=== PATIENT | male | born 1980 | race Caucasian/White ===

== ENCOUNTER → 2018-11-13 12:12 | Outpatient (CLI) | payer MEDICAID, SELFPAY ==
[2018-11-13 13:26] LABS: Bilirubin, Direct 0.21 mg/dL (0.00-0.30)
== END ==
PROVIDERS: Family Provider Nurse Practitioner; PCP Nurse Practitioner; Referring Provider Nurse Practitioner Pediatrics; Visit Provider Nurse Practitioner Pediatrics
DX: P59.9 Neonatal jaundice, unspecified (principal)
CPT/HCPCS: 82247; 82248

== ENCOUNTER 2019-04-09 10:30 | Emergency (ER) | payer MEDICAID, SELFPAY ==
[2019-04-09 10:33] VITALS: PULSE 156; RESP 34; TEMP 36.6; O2SAT 100
--- NOTE | 2019-04-09 10:35 | ED.DCSUM_ITS ---
- ER Visit Summary Date of Service: 04/09/19 Chief Complaint: Cough and congestion History of Present Illness: The patient is a 4m 28d M who presents with cough and congestion that has been getting worse over the past 2 weeks. Mother states the patient has had some nasal congestion. Mother states the patient was recently treated for otitis media with antibiotics. Mother states patient has not had improvement after this. Mother admits to some decreased oral intake. Mother states patient has been acting and playing normally. Mother states patient has been wetting diapers normally. Mother states patient has been a little bit more fussy. Physical Examination: Vital signs are stable. Patient is afebrile here. Patient is in no acute distress. Fontanelles are soft not bulging. Tympanic membranes are clear bilaterally. Oral mucosa is pink and moist. There is a small erythematous lesion in the lower lip. There is no ulceration noted. Neck is supple. Trachea is midline. No JVD or lymphadenopathy. Heart was regular rate and rhythm. Lungs are clear and equal bilateral. Abdomen is soft nontender. Cranial nerves II through XII are intact. There are no focal motor or sensory deficits noted. Emergency Department Course and Treatment: Mother was advised that this is most likely a viral upper respiratory infection. Mother was instructed to use saline nasal spray as needed for nasal congestion and rhinorrhea. Mother was instructed to follow-up with patient's parking lot signaler in 5 to 7 days. Mother was instructed to use Tylenol or Motrin for any fevers. Mother was instructed to return if worse in any way. Mother understood and was agreeable with the plan. All questions were answered. Disposition: Discharge home Impression: Viral upper respiratory infection This note was generated with [employer] dictation software. It may contain incorrect words, spelling, and punctuation that were not noted in review of the chart prior to signing ED Disposition - Plan for ED Patient: Disposition: Home or Assisted Living Diagnosis: Viral upper respiratory infection Instructions: VIRAL SYNDROME (Child) Referrals: Juan Duran NP-C [Primary Care Provider] - 5-7 Days
== END 2019-04-09 11:13 | disposition home or self-care (01) ==
LOC: ED 11:03
PROVIDERS: Emergency Provider Emergency Medicine; Family Provider Nurse Practitioner; PCP Nurse Practitioner
DX: J06.9 Acute upper respiratory infection, unspecified (principal); K13.70 Unspecified lesions of oral mucosa
CPT/HCPCS: 99282

== ENCOUNTER 2019-05-19 22:39 | Emergency (ER) | payer MEDICAID, SELFPAY ==
[2019-05-19 22:40] VITALS: PULSE 126; RESP 32; TEMP 36.3; O2SAT 95
[2019-05-19 22:46] VITALS: PULSE 122; RESP 35; O2SAT 97
--- NOTE | 2019-05-19 22:52 | ED.DCSUM_ITS ---
History of Present Illness - History of Present Illness Chief Complaint: Shortness of Breath Informant: Mother - Onset/Context/Timing Onset: Days Context: Gradual Onset Timing: Continuous Quality: Worse tonight with wheezing and difficulty breathing and feeding Location: Respiratory Current Severity: Mild Maximum Severity: Severe Worsened by: Nothing Relieved by: Nothing GI Associated Symptoms: Negative for: Vomiting, Diarrhea, Drinking/eating less, Not drinking, Decreased urination Neuro Associated Symptoms: Fussy, Crying more. Negative for: Consolable, Inconsolable, Not sleeping, Lethargic, Decreased activity, Generalized seizure, Focal seizure Narrative: Child is a 6-month 7-day-old brought in because of difficulty breathing and wheezing. Mother states he has a cough that sounds like a smoker's cough. No documented fever. Positive runny nose. Reported difficulty feeding this evening. Other family members ill. Child was placed on prednisone because one family member was diagnosed with pneumonia. There is no history of vomiting or diarrhea. No decrease in wet or soiled diapers. Mother's not noted a rash. Sick Contacts: Yes Prior similar symptoms: No Recent Illness/Hospitalization: No - Past Medical History (1) No significant past medical history Status: Acute Past Medical History - Allergies and Home Meds Allergies/Adverse Reactions: Allergies oats Adverse Reaction (Verified 05/19/19 22:40) Rash - Medical/Surgical History None Past Surgical History: None Primary Care Physician: Juan Duran NP-C [Primary Care Provider] - - Social History Negative for: Attends Daycare, Attends school Review of Systems ROS: Unable to Obtain - Limited to what mother is able to tell me since child is nonverbal General: Denies: Chills, Fever Eyes: Reports: - - No discharge from eyes or redness ENT: Reports: Rhinorrhea, - - No drooling. Cardiovascular: Denies: Palpitations, Heart racing Respiratory: Reports: Dyspnea, Cough Gastrointestinal: Denies: Nausea, Vomiting, Diarrhea Genitourinary: Denies: Hematuria, Frequency Musculoskeletal: Denies: Swelling, Extremity Pain Skin: Denies: Rash, Wounds Neurological: Reports: - - No problems with posterior. Denies: Weakness Endocrine: Denies: Polyuria, Polydipsia Hematologic: Denies: Easy bruising, Easy bleeding Physical Exam Vital Signs/Narrative: Vital Signs Temp Pulse Resp Pulse Ox 97.3 F 122 35 97 05/19/19 22:40 05/19/19 22:46 05/19/19 22:46 05/19/19 22:46 Inital Vital Signs reviewed: Yes - Physical Exam General: Well nourished, Well developed, No acute distress, Active, Playful, Smiles Head: Normocephalic, Atraumatic, Flat anterior fontanelle Eyes: PERRL, EOMI, Conjunctiva normal ENT: TM's clear, Ears normal, Moist mucous membranes. Negative for: No rhinorrhea, Dry mucous membranes, Pharyngeal erythema, Tonsillar exudates Neck: Supple, No lymphadenopathy, No JVD, No masses. Negative for: Meningismus, Brudzinski, Kernig's Cardiovascular: Regular rate, Regular rhythm, No murmurs, Normal S1, Normal S2 Respiratory: CTA bilaterally, Chest nontender, Retractions - Lightly retraction noted suprasternal notch. Negative for: Rales, Rhonchi, Wheezing, Stridor, Grunting, Diminished sounds, Accessory muscle use Abdomen: Soft, Nontender, Nondistended, Normal bowel sounds Back: Nontender, Normal Inspection Extremities: Nontender, No edema Skin: Normal color, No rash, No Petechiae, Warm, Dry, No Trauma. Negative for: Cyanosis, Diaphoresis, Jaundice, Pallor Neurological: Alert, Normal motor, Normal sensory, Cranial nerves 2-12 intact Diagnostic/Tx/Re-eval Chest X-Ray - ED: 2 View, Read by ED Physician, Normal, Heart, Mediastinum, Bony Structures, - - There is bilateral peribronchial cuffing consistent with viral infection. 05/19/19 23:00 Chest PA and Lateral [RAD] Stat - Medical Decision Making There is slight retractions and difficulty with feeding chest x-ray was obtained to assess for pneumonia and CHF. Suspect viral cause. With history of other family numbers and being ill and the fact child was noted to have wheezing at home with retractions suspect child has croup. ED Disposition - Plan for ED Patient: Disposition: Home or Assisted Living Diagnosis: Croup due to viral infection Instructions: Croup Referrals: Juan Duran, LIBRARY CLERK-C [Primary Care Provider] - As Needed
[2019-05-19] MEDS: dexAMETHasone 10 MG/ML Vial 5 MG PO.IVFORM (22:55)
--- NOTE | 2019-05-19 23:00 | RAD_ITS ---
HISTORY: cough with vomiting EXAMINATION/TECHNIQUE: XR Chest portable AP and lateral 2 views COMPARISON: None FINDINGS: Normal heart size. No focal infiltrates. No vascular congestion or pleural effusion. No pneumothorax. The bony thorax appears intact. RAD/Chest PA and Lateral IMPRESSION: No acute cardiopulmonary disease. at [id number] Reported and signed by: Jean Claude Carlton MD Electronically Signed: Jean Claude Carlton, at 23:21 EST Tel , Service support ,
[2019-05-19 23:21] VITALS: PULSE 120; RESP 35; O2SAT 100
== END 2019-05-19 23:26 | disposition home or self-care (01) ==
LOC: ED 23:15
PROVIDERS: Emergency Provider Emergency Medicine; PCP Nurse Practitioner
DX: J05.0 Acute obstructive laryngitis [croup] (principal); B97.89 Other viral agents as the cause of diseases classified elsewhere
CPT/HCPCS: 71046; 99283

== ENCOUNTER 2019-09-18 18:56 | Emergency (ER) | payer MEDICAID, SELFPAY ==
[2019-09-18 18:57] VITALS: PULSE 128; RESP 34; TEMP 36.1; O2SAT 97
--- NOTE | 2019-09-18 19:17 | ED.VIS.GEN ---
History of Present Illness Chief Complaint: Poisoning Informant: Family Onset: Today Current Severity: Mild Narrative: The child is here with the mother reports he vomited a few times today, Child is healthy shots are up-to-date he is not been ill in any way no exposures to anyone who is been ill he is eating and drinking well, mother reports the child vomited today and at one time he vomited what appeared to be part of a plant unspecified nonspecific, plants, the mother believes that the plant was completely removed from the yard last year the child was outdoors today, the child is Always 100% complete supervised and while he runs and toddles around the yard there is no way he would have put anything in his mouth and the mother cannot explain why he would have vomited up a piece of a plant particle She spoke with poison control and was asked to come to the hospital subsequent the child has been eating and drinking without difficulty no fever no cough acting normally Past Medical History - Allergies and Home Meds Allergies/Adverse Reactions: Allergies oats Adverse Reaction (Verified 09/18/19 18:57) Rash Primary Care Physician: Juan Duran NP-C [Primary Care Provider] - Past Medical History: None Smoking Status: Never smoker Review of Systems General: Denies: Chills, Fever, Sweats Eyes: Denies: Visual changes - bilaterally, Diplopia ENT: Denies: Rhinorrhea, Sore throat Cardiovascular: Denies: Chest pain, Palpitations Respiratory: Denies: Dyspnea, Cough, Dyspnea on exertion Gastrointestinal: Reports: Vomiting. Denies: Abdominal pain, Nausea, Diarrhea, Melena, Hematochezia Genitourinary: Denies: Dysuria, Hematuria, Frequency Musculoskeletal: Denies: Back pain, Extremity Pain Skin: Denies: Rash, Wounds Neurological: Denies: Headache, Weakness, Numbness Physical Exam Vital Signs/Narrative: Vital Signs Temp Pulse Resp Pulse Ox 09/18/19 18:57 96.9 F 128 34 97 General: Well nourished, Well developed, No Acute Distress Head: Normocephalic, Atraumatic Eyes: Perrl, EOMI ENT: Moist mucous membranes, No rhinorrhea Neck: Supple, Nontender Cardiovascular: Regular rate, Regular rhythm, No murmurs Respiratory: No distress, CTA bilaterally, Chest nontender Abdomen: Soft, Nontender, Nondistended, Normal bowel sounds Back: Nontender, Normal Inspection Extremities: Nontender, No edema Skin: Normal color, No rash Neurological: Alert, Oriented x3, Cranial nerves II-XII grossly intact, Normal Strength, Normal Sensation Psychological: Normal affect, Normal Mood Diagnostic/Tx/Re-eval - Medical Decision Making Child is active playful happy his lungs are clear the abdomen soft and nontender lower oral cavity is unremarkable the neck is supple he has very good muscle tone and skin tone he ran to the mother with his normal gait, he is acting normally now per the mother he has an absolutely soft and nontender abdomen she gave him p.o. prior and he has had no vomiting He did show me a small 1 cm greenish plant like object that is soft and almost looks like a small piece of a firm tree that is not in the yard or anywhere the child was today The mother is questioning how this piece of plant material or what ever it is could have been vomited by the child if it is no longer on the property she reports he was in a swimming pool there was nothing in the pool he could have ingested, the ingestion if it occurred occurred hours ago I explained to the mother I would have no way to answer that We observe the child he remained awake alert active completely nontoxic appearance playful smiling I explained to the mother we could do a chest x-ray she declined that given all the above she is comfortable discharge home to follow-up with outpatient providers have him return for change in symptoms We discussed whether a sibling or someone else could have given the child something inadvertently to eat and she states that not possible, mother is comfortable discharge home at this time Home stable Final impression vomiting etiology unclear resolved, family concern for child jesting a plant particle ED Disposition - Plan for ED Patient: Diagnosis: Vomiting Instructions: ED Poisoning Non-Toxic Child Referrals: Juan Duran NP-C [Primary Care Provider] - Additional Instructions: Please keep the child under observation, sure he does not ingest any foreign material, bland diet follow-up with outpatient providers tomorrow and return for change in symptoms
[2019-09-18 19:55] VITALS: RESP 34
== END 2019-09-18 19:55 | disposition home or self-care (01) ==
LOC: ED 19:52
PROVIDERS: Emergency Provider Emergency Medicine; PCP Nurse Practitioner
DX: R11.10 Vomiting, unspecified (principal)
CPT/HCPCS: 99282

== ENCOUNTER → 2021-02-27 16:06 | Outpatient (CLI) | payer MEDICAID, SELFPAY ==
--- NOTE | 2021-02-27 16:31 | US_ITS ---
STUDY: ULTRASOUND - US Lower Extremity, limited, joint or other nonvascular extremity 02/27/2021 4:54 PM REASON FOR EXAM: Male, 1 years old. LEG MASS,RIGHTLEG MASS,RIGHT TECHNIQUE: A superficial ultrasound was performed with real-time and static amanda-scale imaging. COMPARISON: None. FINDINGS: There is no fluid collection. There is no abscess. There is a cystic lesion in the area of the palpable abnormality. This is along the right posterior knee. This measures 34 x 16 x 7 mm and 8 x 4 x 3 mm. There is a tract connecting the two cysts. US/Ext Non Vasc Limited/Soft Tiss IMPRESSION: FINDINGS ARE SUGGESTIVE OF A POPLITEAL CYST. Electronically Signed: Aguila Badillo MD at 16:56 EST , Service support ,
[2021-02-27 16:50] LABS: Hematocrit 31.3 % (33-38); Hemoglobin 10.4 g/dL (13.0-16.5); Mean Corp Hgb Conc 33.2 g/dL (32-36); Mean Corpuscular Hgb 25.4 pg (23.0-30.0); Mean Corpuscular Volume 76.3 fL (70-84); Platelet Count 407 K/mm3 (250-600); RBC Distribution Width CV 12.2 % (11.6-14.6); RBC Distribution Width SD 33.8 fl (35.1-43.9); White Blood Count 9.2 K/mm3 (6-17.0)
[2021-02-27 17:02] LABS: Erythrocyte Sedimentation Rate 3 mm/hr (0-13 (CHILD))
[2021-02-27 17:19] LABS: CRP < 2.90 mg/L (0.0-3.0)
[2021-02-28 17:03] LABS: Absolute Lymphocyte Count 5.45 X10^3/uL (0.83-4.51); Absolute Neutrophil Count 2.8 X10^3/uL (2.0-7.7); Basophil# 0.06 X10^3/uL; Basophil% 0.6 % (0-1); Eosinophils% 5.4 % (0-3); Lymphocyte # 5.45 X10^3/ul (0.83-4.51); Lymphocyte % 58.5 % (45-76); Monocyte# 0.49 X10^3/uL; Monocyte% 5.3 % (3-6); NRBC Flagged by Analyzer 0 % (0-5); Neutrophil # 2.82 X10^3/uL (2.7-7.7); Neutrophil % 30.2 % (15-35); POSITIVE DIFFERENTIAL YES; POSITIVE MORPHOLOGY YES
[2021-02-28 17:23] LABS: Differential Indicated SCAN CRITERIA MET
[2021-02-28 17:26] LABS: Differential Comment SCANNED
== END ==
PROVIDERS: PCP Nurse Practitioner; Referring Provider Pediatrics; Visit Provider Pediatrics
DX: R22.41 Localized swelling, mass and lump, right lower limb (principal)
CPT/HCPCS: 36415; 76882; 85025; 85027; 85652; 86140

== ENCOUNTER 2021-07-30 22:32 | Emergency (ER) | payer MEDICAID, SELFPAY ==
[2021-07-30 22:33] VITALS: PULSE 114; RESP 24; TEMP 36.4; O2SAT 97
--- NOTE | 2021-07-30 23:36 | ED.VIS.PED ---
HPI HPI - PEDS History of Present Illness Chief Complaint: Nausea/Vomiting Informant: parent Onset/Context/Timing Onset: Hours Context: Gradual Onset Current Severity: Mild Maximum Severity: Mild Associated Symptoms Associated Symptoms - GI/Peds: Yes vomiting and diarrhea Narrative Narrative: 1-year-old history of anemia no prior transfusion no history of surgery. Mom states around 5:30 or 6:00 p.m. seb started having nausea vomiting. No diarrhea. No fever. His brother at home has diarrhea, mom thinks that is contracted much fruit drinks. None of the adults at home are ill. Sick Contacts: No Prior similar symptoms: No Recent Illness/Hospitalization: No PFSH PFSH Medical History Asthma Home Medications albuterol sulfate [Ventolin HFA] 1 - 2 puff INHALATION Q4H PRN PRN 07/30/21 [History Last Taken Unknown] cetirizine 2.5 mg PO DAILY 07/30/21 [History Last Taken Unknown] ferrous sulfate 30 mg PO BID 07/30/21 [History Last Taken Unknown] Allergy/AdvReac Type Severity Reaction Status Date / Time oats AdvReac Rash Verified 07/30/21 22:37 ROS ROS ED ROS Narrative Nausea and vomiting. No fever. Review of Systems ROS Unobtainable: Denies due to encephalopathy Constitutional Constitutional ED: Denies fever(s) Eyes Eyes: Denies change in eye color ENT ENT ED: Denies ear pain, rhinorrhea or sore throat Cardiovascular Cardiovascular: Denies chest pain Respiratory/Chest Respiratory/Chest: Denies cough Gastrointestinal Gastrointestinal: Reports nausea and vomiting; Denies abdominal pain, constipation or diarrhea Musculoskeletal Musculoskeletal: Denies extremity pain Integumentary Denies rash Neurologic Neurologic: Denies behavior changes Psychiatric Psychiatric: Denies depression Endocrine Endocrinology: Denies polyuria Hematologic/Lymphatic Hematologic/Lymphatic: Denies easy bruising Allergic/Immunologic Allergic/Immunologic ED: Denies urticaria EXAM Physical Exam Narrative Exam Narrative: To sleeping. Vital signs stable afebrile. Is not septic or toxic. H ENT exam pupils round reactive light. Moist mucous membranes and mouth. Posterior pharynx unremarkable. Neck nontender no lymphadenopathy. Lungs are clear. Heart regular rhythm rate about 110 no murmur. Abdomen soft. Nontender. Nondistended. Normal bowel sounds no peritoneal signs. Moving all 4 extremities. External exam unremarkable. Back nontender. Neurologically he is asleep but easily arousable. Const Vital Signs: 07/30/21 22:33 Temperature 97.5 F Temperature Source Temporal Pulse Rate 114 Respiratory Rate 24 Pulse Ox 97 Oxygen Delivery Method Room Air Positive well nourished and well developed General Appearance ED: well developed, easily aroused, NAD and non-toxic; Negative for active, crying, fussy, irritable, lethargic, pallor, playful or smiles HEENT Reports moist mucous membranes atraumatic; Negative for trauma or tenderness Eyes PERRL and EOMs intact bilaterally General Eye ED: Negative for pale conjunctiva or scleral icterus Neck no lymphadenopathy, supple, no meningeal signs and no JVD General: Negative for tenderness, meningeal signs or mass Resp normal respiratory effort Auscultation: clear to auscultation bilaterally; Negative for rales, rhonchi or wheezes Cardio regular rhythm, S1 normal heart sound, S2 normal heart sound and no murmurs Rate: regular rate GI non-tender, non-distended and no masses Inspection: Negative for abdominal distention Auscultation: normoactive bowel sounds Palpation: soft; Negative for tender, guarding or rebound tenderness present external exam normal Groin / Perineum Exam: Negative for edema or erythema Back/Spine no CVA tenderness General Back: Negative for CVA tenderness Neuro moves all extremities and no focal motor deficits Sensorium / Orientation: alert Psych Mood & Affect: Negative for irritable Skin no petechiae General Skin Exam: elasticity normal and turgor normal; Negative for jaundice or pallor Lesions: no lesions Rashes: no rashes MDM MDM MDM Narrative Medical decision making narrative: Well-appearing 1-year-old. No acute distress. History and exam consistent with a viral illness. Clinically looks well. Does not look dehydrated. He will be given Zofran and p.o. fluid challenge if he does well be discharged home. Repeat exam child is doing well at 12 AM. Abdomen is benign. He will be given a Zofran to use at home as needed. Discharge Plan Triage Chief Complaint: Nausea/Vomiting ED Provider: Maxi Rondon Dx/Rx/DC Orders Clinical Impression: Viral syndrome, Vomiting in child Instructions: ED Viral Syndrome (Child), ED Vomiting (Child) Prescriptions: No Action albuterol sulfate [Ventolin HFA] 90 mcg/actuation HFA aerosol inhaler 1 - 2 puff INHALATION Q4H PRN PRN (Reason: Wheezing) RF: 0 cetirizine 1 mg/mL solution 2.5 mg PO DAILY RF: 0 ferrous sulfate 15 mg iron (75 mg)/mL drops 30 mg PO BID RF: 0 Primary Care Provider: Jen Reinoso Referrals: Jen Reinoso MD [Primary Care Provider] - 1-2 Days if not improving Activity Restrictions/Additional Instructions: Zofran as needed if vomiting. If not he does not need to take it at all. Plenty of fluids and rest. Push fluids especially water, Pedialyte and 7-Up. Increase diet slowly as tolerated. Follow-up with your doctor if not improving return if looking worse. Disposition Disposition: Home, Self Care
[2021-07-30] MEDS: Ondansetron ODT 4 MG Tablet 2 MG PO (23:53)
[2021-07-31] MEDS: Ondansetron ODT 4 MG Tablet PO (00:09)
[2021-07-31 00:10] VITALS: PULSE 100; RESP 20; O2SAT 97
== END 2021-07-31 00:11 | disposition home or self-care (01) ==
PROVIDERS: Emergency Provider Emergency Medicine; PCP Pediatrics; Visit Provider Emergency Medicine
DX: B34.9 Viral infection, unspecified (principal); R11.2 Nausea with vomiting, unspecified; R19.7 Diarrhea, unspecified; J45.909 Unspecified asthma, uncomplicated; Z79.899 Other long term (current) drug therapy
CPT/HCPCS: 99283; J2405

== ENCOUNTER → 2021-08-06 | Outpatient (CLI) | payer MEDICAID, SELFPAY ==
[2021-08-06 14:01] LABS: Absolute Lymphocyte Count 3.12 X10^3/uL (0.83-4.51); Absolute Neutrophil Count 2.1 X10^3/uL (2.0-7.7); Basophil# 0.03 X10^3/uL; Basophil% 0.5 % (0-1); Eosinophil# 0.51 X10^3/uL; Eosinophils% 8.4 % (0-3); Hematocrit 33.3 % (33-38); Hemoglobin 11.2 g/dL (13.0-16.5); Lymphocyte # 3.12 X10^3/ul (0.83-4.51); Lymphocyte % 51.1 % (45-76); Mean Corp Hgb Conc 33.6 g/dL (32-36); Mean Corpuscular Hgb 25.3 pg (23.0-30.0); Mean Corpuscular Volume 75.2 fL (70-84); Monocyte# 0.38 X10^3/uL; Monocyte% 6.2 % (3-6); NRBC Flagged by Analyzer 0 % (0-5); Neutrophil # 2.05 X10^3/uL (2.7-7.7); Neutrophil % 33.6 % (15-35); POSITIVE MORPHOLOGY YES; Platelet Count 392 K/mm3 (250-600); RBC Distribution Width CV 12.7 % (11.6-14.6); RBC Distribution Width SD 34.6 fl (35.1-43.9); Red Blood Count 4.43 M/mm3 (3.7-4.9); White Blood Count 6.1 K/mm3 (6-17.0)
[2021-08-06 14:04] LABS: Differential Indicated SCAN CRITERIA MET
== END | disposition home or self-care (01) ==
PROVIDERS: PCP Pediatrics; Referring Provider Pediatrics; Visit Provider Pediatrics
DX: D50.8 Other iron deficiency anemias (principal)
CPT/HCPCS: 36415; 85025